=== PATIENT | female | born 2005 ===

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

== ENCOUNTER 2024-10-28 08:26 | Emergency (ER) | payer MEDICAID, OTHER | END 2024-10-28 10:35 | disposition home or self-care (01) | LOC: DL.ED 08:26 | DX: S00.03XA Contusion of scalp, initial encounter (principal); Y04.8XXA Assault by other bodily force, initial encounter; Y93.89 Activity, other specified | CPT/HCPCS: 70450; 71046; 99283; 99284 ==